=== PATIENT | female | born 1970 | race Hispanic/Latino ===

== ENCOUNTER 2019-04-01 18:20 | Emergency (ER) | payer MEDICARE ==
[2019-04-01] MEDS ORDERED: TETRACAINE HCL 0.5% 4 ML OPHTH SOLN ONE (18:40)
[2019-04-01] MEDS ORDERED: FLUORESCEIN SODIUM 1 STRIP STRIP ONE (18:40)
== END 2019-04-01 19:11 | disposition home or self-care (01) ==
LOC: EDH 18:20
DX: H05.011 Cellulitis of right orbit (principal); H53.10 Unspecified subjective visual disturbances; E11.9 Type 2 diabetes mellitus without complications; F32.9 Major depressive disorder, single episode, unspecified; Z79.4 Long term (current) use of insulin; Z85.3 Personal history of malignant neoplasm of breast

== ENCOUNTER 2023-08-20 20:21 | Emergency (ER) | payer OTHER ==
[~2023-08-20] VITALS: Ht 152.4 cm; Wt 59.0 kg
[~2023-08-20 20:21] MED LIST: ACET-2079 PO; ONDA4TAB4 PO
[2023-08-20 22:28] LABS: BASOPHILS # (AUTO) 0.04 K/uL (0.00-0.20); BASOPHILS % (AUTO) 0.5 % (0.0-5.0); EOSINOPHILS # (AUTO) 0.12 K/uL (0.00-0.70); EOSINOPHILS % (AUTO) 1.4 % (0.0-8.0); HEMATOCRIT 38.7 % (36-48); IMMATURE GRANULOCYTE ABSOLUTE 0.02 K/uL (0-1); LYMPHOCYTES # (AUTO) 2.7 K/uL (1.0-4.8); LYMPHOCYTES % (AUTO) 33.1 % (21.0-51.0); MEAN CORPUSCULAR HEMOGLOBIN 31.7 pg (27.0-33.0); MEAN CORPUSCULAR HGB CONC 35.7 g/dL (32.0-36.0); MEAN CORPUSCULAR VOLUME 88.8 fL (79-99); MONOCYTES # (AUTO) 0.5 K/uL (0.1-1.0); MONOCYTES % (AUTO) 6.5 % (3.0-13.0); NEUTROPHILS # (AUTO) 4.8 K/uL (1.8-7.7); NEUTROPHILS % (AUTO) 58.3 % (40.0-77.0); PLATELET COUNT (AUTO) 193 K/uL (130-400); RED BLOOD CELL COUNT(AUTO) 4.36 MIL/uL (4.00-5.50); RED CELL DISTRIBUTION WIDTH 12.4 % (11.0-15.5); WHITE BLOOD COUNT (AUTO) 8.3 K/uL (4.8-10.8)
[2023-08-20 22:37] LABS: POTASSIUM 3.3 mmol/L (3.5-5.1)
[2023-08-20 22:43] LABS: ALBUMIN 3.7 g/dL (3.5-5.0); BILIRUBIN,TOTAL 0.4 mg/dL (0.2-1.0); TOTAL PROTEIN, SERUM 8.4 g/dL (6.0-8.3)
[2023-08-20] MEDS ORDERED: ACETAMINOPHEN 500 MG TABLET PO ONE (23:00)
[2023-08-20] MEDS ORDERED: HYDRALAZINE 20MG/ML VIAL IV ONE (23:00)
[2023-08-21] MEDS ORDERED: DiphenhydrAMINE HCL 50 MG/ML VIAL IV ONE
[2023-08-21] MEDS ORDERED: METOCLOPRAMIDE 10 MG/2 ML VIAL IVP ONE
[2023-08-21] MEDS ORDERED: KETOROLAC 30MG VIAL (30MG/ML) IVP ONE
[2023-08-21 00:04] LABS: SARS-CoV-2, RNA, NAAT POSITIVE SARS CoV-2 (NEGATIVE)
[2023-08-21] MEDS ORDERED: IBUP-1493 PO (00:25)
[2023-08-21 00:26] LABS: INFLUENZA TYPE A Negative For Type A (NEGATIVE); INFLUENZA TYPE B Negative For Type B (NEGATIVE)
[2023-08-21] MEDS ORDERED: POTASSIUM BICARB/CIT AC 25 MEQ TABLET.EFF PO ONE (00:30)
[2023-08-21] MEDS ORDERED: 0.9%NACL 1000ML 1,000 ML IV ONE (00:30)
[2023-08-21] MEDS ORDERED: KETOROLAC 15MG/ML VIAL (15MG/ML) IV ONE (01:00)
[2023-08-21 01:33] VITALS: BP 129/63; PULSE 94; RESP 17; O2SAT 98
== END 2023-08-21 02:13 | disposition home or self-care (01) ==
LOC: EDH 20:21
DX: U07.1 COVID-19 (principal); I10 Essential (primary) hypertension; E11.9 Type 2 diabetes mellitus without complications; E78.00 Pure hypercholesterolemia, unspecified; Z79.899 Other long term (current) drug therapy
CPT/HCPCS: 99285; 70450; 96374; 87635; 80053; 85025; 87804 ×2; 36415; 70486; 96375; C9803; J0360; J1200; J7030; J2765; J1885; 87502; 96361

== ENCOUNTER 2023-12-28 14:09 | Emergency (ER) | payer OTHER ==
[~2023-12-28] VITALS: Ht 152.4 cm; Wt 59.0 kg
[~2023-12-28 14:09] MED LIST changes: +IBUP-1493 PO
[2023-12-28 15:38] LABS: BASOPHILS # (AUTO) 0.01 K/uL (0.00-0.20); BASOPHILS % (AUTO) 0.1 % (0.0-5.0); IMMATURE GRANULOCYTE ABSOLUTE 0.03 K/uL (0-1); LYMPHOCYTES # (AUTO) 0.7 K/uL (1.0-4.8); MEAN CORPUSCULAR HEMOGLOBIN 31.3 pg (27.0-33.0); MEAN CORPUSCULAR HGB CONC 34.9 g/dL (32.0-36.0); MEAN CORPUSCULAR VOLUME 89.9 fL (79-99); MONOCYTES # (AUTO) 0.1 K/uL (0.1-1.0); MONOCYTES % (AUTO) 1.3 % (3.0-13.0); NEUTROPHILS # (AUTO) 6.3 K/uL (1.8-7.7); NEUTROPHILS % (AUTO) 88.2 % (40.0-77.0); PLATELET COUNT (AUTO) 217 K/uL (130-400); RED BLOOD CELL COUNT(AUTO) 4.34 MIL/uL (4.00-5.50); RED CELL DISTRIBUTION WIDTH 12.3 % (11.0-15.5); WHITE BLOOD COUNT (AUTO) 7.2 K/uL (4.8-10.8)
[2023-12-28 15:43] LABS: APPEARANCE,URINE CLEAR (CLEAR); BILIRUBIN,URINE NEGATIVE (NEGATIVE); COLOR,URINE LIGHT-YELLOW (YELLOW); GLUCOSE, URINE (UA) >=1000 mg/dL (NEGATIVE); KETONES,URINE NEGATIVE (NEGATIVE); LEUKOCYTE ESTERASE ,URINE NEGATIVE Leu/uL (NEGATIVE); NITRATE,URINE NEGATIVE (NEGATIVE); OCCULT BLOOD,URINE NEGATIVE (NEGATIVE); PH,URINE 5.5 (5.0-8.0); PROTEIN,URINE 20 mg/dL (NEGATIVE); UROBILINOGEN,URINE 0.2 mg/dL (0.2-1.0)
[2023-12-28 15:44] LABS: ADD UA MICROSCOPIC YES
[2023-12-28 15:45] LABS: BACTERIA,URINE FEW /HPF (None Seen); MUCUS,URINE RARE LPF (None Seen); SQUAMOUS EPITHELIAL CELL,UR RARE /HPF (0-2)
[2023-12-28 15:46] LABS: POTASSIUM 4.3 mmol/L (3.5-5.1)
[2023-12-28 15:51] LABS: ALBUMIN 3.8 g/dL (3.5-5.0); BILIRUBIN,TOTAL 0.4 mg/dL (0.2-1.0); TOTAL PROTEIN, SERUM 8.6 g/dL (6.0-8.3)
[2023-12-28] MEDS ORDERED: PHEN-847 PO (19:04)
[2023-12-28] MEDS ORDERED: CEPH500B PO (19:04)
[2023-12-28] MEDS ORDERED: BISA-189 PO (19:04)
[2023-12-28] MEDS ORDERED: MICO45CR16 VG (19:04)
[2023-12-28] MEDS ORDERED: FLUC150T48 PO (19:04)
[2023-12-28] MEDS: PHENAZOPYRIDINE HCL 200 MG TABLET PO ONE (19:40)
[2023-12-28] MEDS: KETOROLAC 30MG VIAL (30MG/ML) IM ONE (19:40)
[2023-12-28] MEDS: HYDROCODONE/ACETAMINOPHEN 5/325 MG TAB PO ONE (19:40)
[2023-12-28 19:47] VITALS: BP 154/78; PULSE 81; RESP 18; O2SAT 98
== END 2023-12-28 20:22 | disposition home or self-care (01) ==
LOC: EDH 14:09
DX: R10.2 Pelvic and perineal pain (principal); B37.31 Acute candidiasis of vulva and vagina; N39.0 Urinary tract infection, site not specified; K59.00 Constipation, unspecified; I10 Essential (primary) hypertension; E78.00 Pure hypercholesterolemia, unspecified; E11.9 Type 2 diabetes mellitus without complications; Z79.1 Long term (current) use of non-steroidal anti-inflammatories (NSAID); Z85.3 Personal history of malignant neoplasm of breast; Z87.442 Personal history of urinary calculi
CPT/HCPCS: 99284; 74176; 80053; 85025; 81001; 36415; 96372; J1885